=== PATIENT | female | born 1945 | race Caucasian/White ===

== ENCOUNTER → 2023-03-27 12:19 | Outpatient (REF) | payer MEDICARE, OTHER, SELFPAY ==
[2023-03-27 13:24] LABS: Glycohemoglobin (HgbA1c) 8.3 % (4.0-5.6)
[2023-03-27 14:19] LABS: Free T4 1.08 ng/dl (0.78-2.19)
[2023-03-27 14:33] LABS: TSH 4.55 uIU/ml (0.47-4.68)
[2023-03-27 14:37] LABS: Ferritin 94.9 ng/ml (11.1-264.0)
[2023-03-27 15:00] LABS: ALT (SGPT) 37 U/L (0-35); AST (SGOT) 42 U/L (14-36); Albumin 4.5 g/dl (3.5-5.0); Alkaline Phosphatase 116 U/L (38-126); Blood Urea Nitrogen 20 mg/dl (7-17); Calcium 9.7 mg/dl (8.4-10.2); Carbon Dioxide 24 mmol/L (22-30); Chloride 106 mmol/L (98-107); Glucose 226 mg/dl (70-99); HDL Cholesterol 47 mg/dl; Iron 128 ug/dl (37-170); LDL Cholesterol, Calculated 70 mg/dl; Potassium 4.4 mmol/L (3.5-5.1); Sodium 138 mmol/L (135-145); Total Bilirubin 0.8 mg/dl (0.2-1.3); Total Cholesterol 147 mg/dl (50-199); Total Protein 7.7 g/dl (6.3-8.2); Triglyceride 151 mg/dl (10-149); Very Low Density Lipoprotein 30 mg/dl (0-30); eGFR > 60.00
[2023-03-27 15:09] LABS: Percent Saturation 38 % (20-50); Total Iron Binding Capacity 333 ug/dl (265-497)
[2023-03-27 19:28] LABS: Urine Albumin Trace (Neg - Trace); Urine Bilirubin Negative (Negative); Urine Character Very Cloudy (Clear); Urine Color Yellow; Urine Glucose 2+ (Negative); Urine Ketone Negative (Negative); Urine Leukocyte Trace (Negative); Urine Nitrite Negative (Negative); Urine Occult Blood Negative (Negative); Urine Urobilinogen Negative (Neg - 1+)
[2023-03-27 19:42] LABS: Urine Amorphous Seen; Urine Squamous Cell 0-2 /LPF (Few)
[2023-03-27 19:43] LABS: Urine Red Blood Cell None Seen /HPF (0-2); Urine White Cell 0-2 /HPF (0-5)
[2023-03-27 23:33] LABS: IgA 387 mg/dl (70-400)
[2023-03-28 20:08] LABS: Hepatitis B Surface Antigen Negative (Negative)
[2023-03-28 20:26] LABS: Hepatitis B Surface Antibody Negative; Hepatitis C Antibody Negative (Negative)
[2023-03-28 20:36] LABS: Hepatitis A Antibody, Total Positive (Negative)
[2023-03-30 03:04] LABS: F-Actin Antibody IgG 8 Units (0-19); Mitochondrial M2 Ab, IgG 3.5 Units (0.0-24.9)
[2023-03-30 05:44] LABS: Ceruloplasmin 28 mg/dL (16-45)
[2023-03-30 06:39] LABS: Endomysial IgA Antibody Titer <1:10 (<1:10)
[2023-03-31 18:53] LABS: Alpha-1-Antitrypsin 179 mg/dL (90-200); Alpha-1-Antitrypsin Phenotype M2M2
[2023-04-03 13:16] LABS: tTG IgG Antibody 13.7 EU/ml (0-19)
== END ==
LOC: REG 12:19
PROVIDERS: ATTENDING PHYSICIAN Internal Medicine Gastroenterology; FAMILY PHYSICIAN Nurse Practitioner Family; OTHER PHYSICIAN Family Medicine
DX: E11.9 Type 2 diabetes mellitus without complications (principal); E03.9 Hypothyroidism, unspecified; K75.81 Nonalcoholic steatohepatitis (NASH); R82.90 Unspecified abnormal findings in urine
CPT/HCPCS: 36415; 80053; 80061; 81003; 81015; 82103; 82104; 82390; 82728; 82784; 83036; 83516; 83540; 83550; 84439; 84443; 86015; 86231; 86256; 86381; 86706; 86708; 86803; 87086; 87340

== ENCOUNTER → 2023-04-10 11:40 | Outpatient (REF) | payer MEDICARE, OTHER, SELFPAY ==
[2023-04-16 09:31] LABS: Hemochromatosis Specimen Whole Blood
== END ==
LOC: REG 11:40
PROVIDERS: ATTENDING PHYSICIAN Internal Medicine Gastroenterology; FAMILY PHYSICIAN Family Medicine
DX: E83.19 Other disorders of iron metabolism (principal)
CPT/HCPCS: 36415; 81256

== ENCOUNTER → 2023-04-19 06:29 | Day surgery (SDC) | payer MEDICARE, OTHER, SELFPAY ==
[2023-04-19 08:35] LABS: Glucose - Point of Care 171 mg/dl (70-99)
== END ==
LOC: GI 06:29
PROVIDERS: ATTENDING PHYSICIAN Internal Medicine Gastroenterology
DX: Z12.11 Encounter for screening for malignant neoplasm of colon (principal); Z86.010 Personal history of colon polyps; K57.30 Diverticulosis of large intestine without perforation or abscess without bleeding; K64.8 Other hemorrhoids; K63.5 Polyp of colon; D12.3 Benign neoplasm of transverse colon
CPT/HCPCS: 45385; 45380; 88305; 82962

== ENCOUNTER → 2023-06-28 12:50 | Outpatient (REF) | payer MEDICARE, OTHER, SELFPAY ==
[2023-06-28 14:26] LABS: ALT (SGPT) 49 U/L (0-35); AST (SGOT) 45 U/L (14-36); Albumin 4.5 g/dl (3.5-5.0); Alkaline Phosphatase 98 U/L (38-126); Blood Urea Nitrogen 15 mg/dl (7-17); Calcium 9.4 mg/dl (8.4-10.2); Carbon Dioxide 25 mmol/L (22-30); Chloride 104 mmol/L (98-107); Glucose 179 mg/dl (70-99); Sodium 139 mmol/L (135-145); Total Bilirubin 0.8 mg/dl (0.2-1.3); Total Protein 7.7 g/dl (6.3-8.2); eGFR > 60.00
[2023-06-28 14:40] LABS: Free T4 1.19 ng/dl (0.78-2.19)
[2023-06-28 14:54] LABS: TSH 0.18 uIU/ml (0.47-4.68)
[2023-06-29 09:50] LABS: Glycohemoglobin (HgbA1c) 9.4 % (4.0-5.6)
== END ==
LOC: REG 12:50
PROVIDERS: ATTENDING PHYSICIAN Internal Medicine Endocrinology, Diabetes & Metabolism; FAMILY PHYSICIAN Family Medicine
DX: E11.9 Type 2 diabetes mellitus without complications (principal)
CPT/HCPCS: 36415; 80053; 83036; 84439; 84443

== ENCOUNTER → 2023-07-01 10:42 | Outpatient (REF) | payer MEDICARE, OTHER, SELFPAY ==
[2023-07-01 13:10] LABS: Microalbumin, Random Urine 2.2 mg/dl (0.6-1.7)
[2023-07-01 13:15] LABS: Microalbumin/creatinine Ratio 17.1 mg/g
== END ==
LOC: REG 10:42
PROVIDERS: ATTENDING PHYSICIAN Internal Medicine Endocrinology, Diabetes & Metabolism; FAMILY PHYSICIAN Family Medicine
DX: E11.9 Type 2 diabetes mellitus without complications (principal)
CPT/HCPCS: 82043; 82570

== ENCOUNTER → 2023-07-26 11:25 | Outpatient (REF) | payer MEDICARE, OTHER, SELFPAY ==
[2023-07-26 12:20] LABS: INR 1.16; PT 14.6 Sec (11.4-14.6)
[2023-07-26 13:04] LABS: AFP Male/Tumor Marker 2.77 ng/ml
== END ==
LOC: REG 11:25
PROVIDERS: ATTENDING PHYSICIAN Internal Medicine Gastroenterology; FAMILY PHYSICIAN Family Medicine
DX: K74.69 Other cirrhosis of liver (principal)
CPT/HCPCS: 36415; 82105; 85610

== ENCOUNTER → 2023-08-23 06:35 | Day surgery (SDC) | payer MEDICARE, OTHER, SELFPAY ==
[2023-08-23 08:00] LABS: Glucose - Point of Care 180 mg/dl (70-99)
== END ==
LOC: GI 06:35
PROVIDERS: ATTENDING PHYSICIAN Internal Medicine Gastroenterology; FAMILY PHYSICIAN Family Medicine
DX: K29.50 Unspecified chronic gastritis without bleeding (principal); K44.9 Diaphragmatic hernia without obstruction or gangrene; K31.89 Other diseases of stomach and duodenum; R10.10 Upper abdominal pain, unspecified
CPT/HCPCS: 43239; 88305; 82962; 88342

== ENCOUNTER → 2023-10-21 15:27 | Outpatient (REF) | payer MEDICARE, OTHER, SELFPAY | LOC: RAD 15:27 | PROVIDERS: ATTENDING PHYSICIAN Internal Medicine Critical Care Medicine; FAMILY PHYSICIAN Family Medicine | DX: J84.9 Interstitial pulmonary disease, unspecified (principal) | CPT/HCPCS: 71250 ==

== ENCOUNTER → 2023-10-31 09:51 | Outpatient (REF) | payer MEDICARE, OTHER, SELFPAY ==
[2023-10-31 11:09] LABS: ALT (SGPT) 47 U/L (0-35); AST (SGOT) 43 U/L (14-36); Albumin 4.2 g/dl (3.5-5.0); Alkaline Phosphatase 90 U/L (38-126); Blood Urea Nitrogen 19 mg/dl (7-17); Calcium 9.5 mg/dl (8.4-10.2); Carbon Dioxide 22 mmol/L (22-30); Chloride 103 mmol/L (98-107); Direct Bilirubin 0.2 mg/dl (0.0-0.4); Glucose 277 mg/dl (70-99); Potassium 4.3 mmol/L (3.5-5.1); Sodium 140 mmol/L (135-145); Total Bilirubin 1.1 mg/dl (0.2-1.3); eGFR > 60.00
[2023-10-31 11:13] LABS: Urine Protein 5 mg/dl
[2023-10-31 11:26] LABS: Free T4 1.15 ng/dl (0.78-2.19)
[2023-10-31 12:59] LABS: Glycohemoglobin (HgbA1c) 11.2 % (4.0-5.6)
== END ==
LOC: REG 09:51
PROVIDERS: ATTENDING PHYSICIAN Internal Medicine Gastroenterology; FAMILY PHYSICIAN Family Medicine; OTHER PHYSICIAN Internal Medicine Critical Care Medicine; REFERRING PHYSICIAN Internal Medicine Endocrinology, Diabetes & Metabolism
DX: E11.9 Type 2 diabetes mellitus without complications (principal); K75.81 Nonalcoholic steatohepatitis (NASH)
CPT/HCPCS: 36415; 80053; 82248; 82570; 83036; 84156; 84439; 84443

== ENCOUNTER → 2023-11-08 09:16 | Outpatient (REF) | payer MEDICARE, OTHER, SELFPAY | LOC: RAD 09:16 | PROVIDERS: ATTENDING PHYSICIAN Internal Medicine Gastroenterology; FAMILY PHYSICIAN Family Medicine | DX: K75.81 Nonalcoholic steatohepatitis (NASH) (principal) | CPT/HCPCS: 76700 ==

== ENCOUNTER → 2024-02-17 13:56 | Outpatient (REF) | payer MEDICARE, OTHER, SELFPAY | LOC: WDC 13:56 | PROVIDERS: ATTENDING PHYSICIAN Obstetrics & Gynecology | DX: Z12.31 Encounter for screening mammogram for malignant neoplasm of breast (principal) | CPT/HCPCS: 77063; 77067 ==

== ENCOUNTER → 2024-02-17 14:33 | Outpatient (REF) | payer MEDICARE, OTHER, SELFPAY | LOC: RAD 14:33 | PROVIDERS: ATTENDING PHYSICIAN Obstetrics & Gynecology; FAMILY PHYSICIAN Family Medicine | DX: Z78.0 Asymptomatic menopausal state (principal) | CPT/HCPCS: 77080 ==

== ENCOUNTER → 2024-02-28 11:03 | Outpatient (REF) | payer MEDICARE, OTHER, SELFPAY ==
[2024-02-28 12:16] LABS: Albumin 4.4 g/dl (3.5-5.0)
[2024-02-28 12:26] LABS: ALT (SGPT) 38 U/L (0-35); AST (SGOT) 36 U/L (14-36); Alkaline Phosphatase 94 U/L (38-126); Blood Urea Nitrogen 24 mg/dl (7-17); Calcium 9.4 mg/dl (8.4-10.2); Carbon Dioxide 24 mmol/L (22-30); Chloride 105 mmol/L (98-107); Glucose 229 mg/dl (70-99); Potassium 4.7 mmol/L (3.5-5.1); Sodium 139 mmol/L (135-145); Total Bilirubin 0.9 mg/dl (0.2-1.3); Total Protein 7.3 g/dl (6.3-8.2); eGFR > 60.00
[2024-02-28 12:36] LABS: Free T4 1.09 ng/dl (0.78-2.19)
[2024-02-28 12:49] LABS: TSH 5.54 uIU/ml (0.47-4.68); TSH Reflex To Free T4 5.54 uIU/ml (0.47-4.68)
[2024-02-28 14:31] LABS: Glycohemoglobin (HgbA1c) 8.6 % (4.0-5.6)
== END ==
LOC: REG 11:03
PROVIDERS: ATTENDING PHYSICIAN Internal Medicine Endocrinology, Diabetes & Metabolism; FAMILY PHYSICIAN Family Medicine; REFERRING PHYSICIAN Internal Medicine Gastroenterology
DX: E11.9 Type 2 diabetes mellitus without complications (principal)
CPT/HCPCS: 36415; 80053; 82248; 83036; 84439; 84443

== ENCOUNTER 2024-04-24 19:33 | Emergency (ER) | payer MEDICARE, OTHER, SELFPAY ==
[2024-04-24 19:47] VITALS: BP 175/70
[2024-04-24 20:15] LABS: % Basophils 0.5 % (0-2); % Eosinophils 1.4 % (0-6); % Immature Granulocytes 0.4 % (0-0.5); % Lymphocytes 18.9 % (20.5-51.1); % Monocytes 6.9 % (1.7-9.3); % Neutrophils 71.9 % (42.2-75.2); Absolute Eosinophils 0.1 10^3/uL (0-0.7); Absolute Lymphocytes 1.5 10^3/uL (1.2-3.4); Absolute Monocytes 0.6 10^3/uL (0.1-0.6); Absolute Neutrophils 5.7 10^3/uL (1.4-6.5); Hematocrit 45.6 % (37.0-47.0); Hemoglobin 15.5 g/dL (12.0-16.0); Mean Corpuscular Hgb 29.6 pg (27.0-31.0); Mean Platelet Volume 12.8 fL (7.4-10.4); Nucleated Red Blood Cells % 0 %; Platelet Count 114 10^3/uL (130-400); Red Blood Cell Count 5.24 10^6/uL (4.20-5.40); Red Cell Dist. Width 14.5 % (11.5-14.5); White Blood Cell Count 7.9 10^3/uL (4.8-10.8)
[2024-04-24 20:17] LABS: Urine Albumin 2+ (Neg - Trace); Urine Bilirubin Negative (Negative); Urine Character Clear (Clear); Urine Color Yellow; Urine Glucose 3+ (Negative); Urine Ketone Negative (Negative); Urine Leukocyte Negative (Negative); Urine Nitrite Negative (Negative); Urine Occult Blood 4+ (Negative); Urine Urobilinogen 1+ (Neg - 1+)
[2024-04-24 20:27] LABS: ALT (SGPT) 37 U/L (0-35); AST (SGOT) 41 U/L (14-36); Albumin 4.4 g/dl (3.5-5.0); Alkaline Phosphatase 67 U/L (38-126); Blood Urea Nitrogen 21 mg/dl (7-17); Carbon Dioxide 23 mmol/L (22-30); Chloride 106 mmol/L (98-107); Glucose 122 mg/dl (70-99); Potassium 4.5 mmol/L (3.5-5.1); Sodium 137 mmol/L (135-145); Total Bilirubin 1.1 mg/dl (0.2-1.3); Total Protein 7.4 g/dl (6.3-8.2); eGFR 51.75
[2024-04-24 20:29] LABS: Urine Red Blood Cell >100 /HPF (0-2)
[2024-04-24 20:31] LABS: Urine Bacteria Few (Negative); Urine White Cell 0-2 /HPF (0-5)
[2024-04-24 22:27] VITALS: BP 140/65
--- NOTE | 2024-04-24 22:41 | ED.GENMED ---
History of Present Illness
General
Chief Complaint: Flank Pain
Source: patient and spouse
Exam Limitations: none
Time Seen by Provider: 04/24/24 22:33
Nursing documentation reviewed up to this point in time: agreed with
History of Present Illness
History of Present Illness:
78-year-old female presents emergency department due to right-sided flank pain and vomiting since yesterday. She has never had pain like this before. It does not radiate.
Past History
Past History
ED Past Medical History: Hypercholesterolemia, IDDM, Hypothyroidism and Other (Migraines, pulmonary fibrosis)
ED Past Surgical History: Cholecystectomy and Tonsilectomy
Social History
Tobacco: Non-smoker
Personal:
Employment: Employed
Review of Systems
Review of Systems
Allergies reviewed?: Yes
All Other Systems: Not applicable
Constitutional: Reports no symptoms
EENT: Reports no symptoms
Respiratory: Reports no symptoms
Cardiac: Reports no symptoms
ABD/GI: Reports vomiting
: Reports flank pain
Musculoskeletal: Reports no symptoms
Skin: Reports no symptoms
Neurological: Reports no symptoms
Endocrine: Reports no symptoms
Hematologic/Lymphatic: Reports no symptoms
Psychiatric: Reports no symptoms
Phy Exam
Physical Exam
Physical Exam:
Physical Exam
General: no apparent distress, not acutely ill
Neck: supple. no meningeal signs. normal posterior pharynx
Heart: s1/s2 regular rate and rhythm, no murmur. equal radial
pulses.
HEENT: Pupils equal round reactive to light, EOMI
Lungs: no acute respiratory distress. clear bilaterally
Abdomen: normal bowel sounds. not tender. no CVAT
Neuro: alert and oriented. no focal neurological deficits cranial nerves II through XII intact
Skin: no rash
Psychiatric: well kept. interactive and cooperative
Extremities: no edema. no calf tenderness. negative homans. good distal pulses
Course
Orders/Labs/Results
Orders:
Orders
04/24/24 20:01
Complete Blood Count/With Diff Urgent
Comprehensive Metabolic Panel Urgent
04/24/24 20:07
Urinalysis Reflex To Culture Urgent
Date Specimen was Collected: 04/24/24
Time Specimen was Collected: 19:50
Urine Microscopic Reflex Cult Urgent
04/24/24 22:45
CT Abd/pel Without Iv Or Oral Urgent
Comment:
Reason For Exam: right flank pain, hematuria
04/24/24 23:44
0.9% Sodium Chloride 1000 ml [Nss] 1,000 ml IV BOLUS
Ketorolac [Toradol] 15 mg IV NOW STA
Abnormal Lab Results
04/24/24 04/24/24
20:01 20:07
Plt Count 114 L 10^3/uL
(130-400)
MPV 12.8 H fL
(7.4-10.4)
Lymphocytes % 18.9 L %
(20.5-51.1)
BUN 21 H mg/dl
(7-17)
Creatinine 1.1 H mg/dL
(0.6-1.0)
Glucose 122 H mg/dl
(70-99)
AST 41 H U/L
(14-36)
ALT 37 H U/L
(0-35)
Ur Occult Blood Reflex 4+ A
(Negative)
Urine RBC >100 A /HPF
(0-2)
Urine Bacteria (Reflex) Few A
(Negative)
Urine Glucose 3+ A
(Negative)
Urine Albumin (Reflex) 2+ A
(Neg - Trace)
04/24/24 20:01
04/24/24 20:01
Vital Signs
Initial and Last Documented VS:
Initial Vital Signs
Temp Pulse Resp BP Pulse Ox
98.9 F 78 18 175/70 98
04/24/24 19:47 04/24/24 19:47 04/24/24 19:47 04/24/24 19:47 04/24/24 19:47
Last Documented Vital Signs
Temp Pulse Resp BP Pulse Ox
98.9 F 64 18 147/63 97
04/24/24 19:47 04/25/24 00:08 04/24/24 22:27 04/24/24 23:00 04/25/24 00:08
MDM/Problems Addressed
Differential Diagnosis Includes:
UTI, kidney stone
MDM/Problems Addressed:
78-year-old female with right ureteral calculus. No signs UTI. Stable for discharge. Follow-up with urology. Discussed other results to include pulmonary fibrosis and diverticulosis, which patient was aware of.
Chronic conditions affecting care: Other (Diverticulosis)
*Radiology
Radiology exam reviewed: radiology read reviewed (CT abdomen pelvis shows right 3 mm ureteral calculus)
*Pulse Oximetry
Patient hypoxic: no
*Critical Care Note
Total Time (30-74mins, 75-104mins- exclusive of procedures): Not Applicable
Patient Management
Social determinants of health affecting care: Living situation and Strong social support
Escalation/DeEscalation of care consider admission/obs:
Admit not indicated
ED Attending Note
-
Portions of this chart may have been created with voice recognition software.� Occasional wrong word or��sound alike� substitutions may have occurred due to the inherent limitations of voice recognition software.
Discharge Plan
Departure
Patient Disposition: Home (Routine Discharge)
Date of Disposition: 04/25/24
Time of Disposition: 00:35
Patient with high blood pressure during this ER visit?: Yes
Condition: Good
Discharge Problem:
Calculus of distal right ureter
Instructions: Kidney Stones (DC), How to Strain Your Urine, BLOOD PRESSURE
Prescriptions:
No Action
biotin 5,000 MCG tablet,disintegrating
5,000 mcg PO HS
levothyroxine 50 MCG tablet
50 mcg PO DAILY
glimepiride 4 MG tablet
4 mg PO BID
metoprolol succinate 12.5 MG tablet extended release 24 hr
12.5 mg PO QPM
coenzyme Q10 [CoQ-10] 100 mg Capsule
100 mg PO DAILY
rosuvastatin 5 mg Tablet
5 mg PO HS
escitalopram oxalate [Lexapro] 5 mg Tablet
5 mg PO QPM
Theracran 650 mg Capsule
1,300 mg PO DAILY
aspirin 81 mg Capsule
81 mg PO HS
Januvia 25 mg Tablet
25 mg PO DAILY
insulin glargine [Basaglar KwikPen U-100 Insulin] 100 unit/mL (3 mL) Insulin Pen
20 unit SC HS
cefdinir 300 mg capsule
300 mg PO Q12H 5 Days Qty: 10 0RF
Referrals:
Horacio Perry DO [Family Provider] -
Mikhail Marc MD [Active] - Call in 1-3 days for appt
Interventions
Interventions:
*Risk Screen - Suicide Last Done: 04/24/24 22:23
*General Assessment Last Done: 04/24/24 22:24
*Neglect/Abuse Screening Last Done: 04/24/24 22:23
*ED- Fall Risk Assessment Last Done: 04/24/24 22:23
*ED COVID-19 Vaccine History Last Done: 04/24/24 22:23
FB-Xmvdby-Rqxhnzpajj Assessment Last Done: 04/24/24 22:25
ED-Female Genitourinary Assessment Last Done: 04/24/24 22:25
Discharge Date and Time
Print Language: [place]
[2024-04-24 23:00] VITALS: BP 147/63
[2024-04-24] MEDS: NSS 1000 IV (23:59)
[2024-04-24] MEDS: TORADOL 15 MG IV (23:59)
[2024-04-25 00:48] VITALS: BP 130/62
== END 2024-04-25 00:49 | disposition home or self-care (01) ==
LOC: EMR 19:33
PROVIDERS: EMERGENCY PHYSICIAN Emergency Medicine; FAMILY PHYSICIAN Family Medicine
DX: R10.9 Unspecified abdominal pain (principal); E78.00 Pure hypercholesterolemia, unspecified; E11.9 Type 2 diabetes mellitus without complications; E03.9 Hypothyroidism, unspecified; J84.10 Pulmonary fibrosis, unspecified; Z90.49 Acquired absence of other specified parts of digestive tract
CPT/HCPCS: 99284; 96374; 74176; 80053; 81003; 81015; 85025

== ENCOUNTER → 2024-04-30 12:02 | Outpatient (REF) | payer MEDICARE, OTHER, SELFPAY | LOC: CLAB 12:02 | PROVIDERS: ATTENDING PHYSICIAN Specialist | DX: N20.0 Calculus of kidney (principal) | CPT/HCPCS: 82365 ==

== ENCOUNTER → 2024-06-08 10:02 | Outpatient (REF) | payer MEDICARE, OTHER, SELFPAY ==
[2024-06-08 12:29] LABS: ALT (SGPT) 23 U/L (0-35); AST (SGOT) 28 U/L (14-36); Alkaline Phosphatase 62 U/L (38-126); Blood Urea Nitrogen 18 mg/dl (7-17); Calcium 9.5 mg/dl (8.4-10.2); Carbon Dioxide 25 mmol/L (22-30); Chloride 108 mmol/L (98-107); Glucose 125 mg/dl (70-99); HDL Cholesterol 55 mg/dl; LDL Cholesterol, Calculated 68 mg/dl; Potassium 4.4 mmol/L (3.5-5.1); Sodium 141 mmol/L (135-145); Total Bilirubin 0.8 mg/dl (0.2-1.3); Total Cholesterol 157 mg/dl (50-199); Total Protein 6.9 g/dl (6.3-8.2); Triglyceride 173 mg/dl (10-149); Very Low Density Lipoprotein 34 mg/dl (0-30); eGFR > 60.00
[2024-06-08 12:35] LABS: Free T4 1.16 ng/dl (0.78-2.19)
[2024-06-08 12:49] LABS: TSH 3.65 uIU/ml (0.47-4.68)
[2024-06-08 13:40] LABS: Microalbumin, Random Urine 1.8 mg/dl (0.6-1.7)
== END ==
LOC: REG 10:02
PROVIDERS: ATTENDING PHYSICIAN Internal Medicine Endocrinology, Diabetes & Metabolism; FAMILY PHYSICIAN Family Medicine
DX: E11.9 Type 2 diabetes mellitus without complications (principal)
CPT/HCPCS: 36415; 80053; 80061; 82043; 82570; 83036; 84439; 84443

== ENCOUNTER → 2024-06-11 12:59 | Outpatient (REF) | payer MEDICARE, OTHER, SELFPAY | LOC: HWEVLT 12:59 | PROVIDERS: ATTENDING PHYSICIAN Radiology Diagnostic Radiology | DX: I83.891 Varicose veins of right lower extremity with other complications (principal) | CPT/HCPCS: 93971 ==

== ENCOUNTER → 2024-10-27 09:24 | Outpatient (REF) | payer MEDICARE, OTHER, SELFPAY | LOC: HWEVLT 09:24 | PROVIDERS: ATTENDING PHYSICIAN Radiology Vascular & Interventional Radiology | DX: I83.891 Varicose veins of right lower extremity with other complications (principal) | CPT/HCPCS: 36478; C1769 ==

== ENCOUNTER → 2024-11-05 11:18 | Outpatient (REF) | payer MEDICARE, OTHER, SELFPAY | LOC: RAD 11:18 | PROVIDERS: ATTENDING PHYSICIAN Internal Medicine Critical Care Medicine; FAMILY PHYSICIAN Family Medicine | DX: J84.10 Pulmonary fibrosis, unspecified (principal); R91.1 Solitary pulmonary nodule | CPT/HCPCS: 71250 ==

== ENCOUNTER → 2024-11-10 11:13 | Outpatient (REF) | payer MEDICARE, OTHER, SELFPAY | LOC: HWEVLT 11:13 | PROVIDERS: ATTENDING PHYSICIAN Radiology Vascular & Interventional Radiology | DX: I83.891 Varicose veins of right lower extremity with other complications (principal) | CPT/HCPCS: 93971 ==

== ENCOUNTER → 2024-11-17 10:33 | Outpatient (REF) | payer MEDICARE, OTHER, SELFPAY ==
[2024-11-17 11:53] LABS: INR 1.13; PT 14.9 Sec (11.4-14.6)
[2024-11-17 11:54] LABS: Hematocrit 40.5 % (37.0-47.0); Hemoglobin 13.3 g/dL (12.0-16.0); Mean Corp Hgb Conc. 32.8 g/dL (33.0-37.0); Mean Corpuscular Volume 88.2 fL (81.0-99.0); Nucleated Red Blood Cells % 0 %; Platelet Count 98 10^3/uL (130-400); Red Cell Dist. Width 14.5 % (11.5-14.5)
[2024-11-17 12:17] LABS: ALT (SGPT) 37 U/L (0-35); AST (SGOT) 36 U/L (14-36); Albumin 4.2 g/dl (3.5-5.0); Alkaline Phosphatase 64 U/L (38-126); Blood Urea Nitrogen 18 mg/dl (7-17); Calcium 9.2 mg/dl (8.4-10.2); Carbon Dioxide 26 mmol/L (22-30); Chloride 106 mmol/L (98-107); Glucose 141 mg/dl (70-99); HDL Cholesterol 44 mg/dl; LDL Cholesterol, Calculated 48 mg/dl; Potassium 4.8 mmol/L (3.5-5.1); Sodium 139 mmol/L (135-145); Total Protein 7.1 g/dl (6.3-8.2); Very Low Density Lipoprotein 36 mg/dl (0-30); eGFR > 60.00
[2024-11-17 12:47] LABS: TSH 2.58 uIU/ml (0.47-4.68)
[2024-11-17 13:02] LABS: AFP Male/Tumor Marker 3.64 ng/ml
[2024-11-17 13:23] LABS: Microalb - Urine Creatinine 173.800 mg/dl
[2024-11-17 13:28] LABS: Microalbumin, Random Urine 2.7 mg/dl (0.6-1.7)
[2024-11-17 14:34] LABS: Glycohemoglobin (HgbA1c) 7.3 % (4.0-5.6)
== END ==
LOC: REG 10:33
PROVIDERS: ATTENDING PHYSICIAN Internal Medicine Endocrinology, Diabetes & Metabolism; FAMILY PHYSICIAN Family Medicine; REFERRING PHYSICIAN Internal Medicine Gastroenterology
DX: K74.69 Other cirrhosis of liver (principal); E11.9 Type 2 diabetes mellitus without complications
CPT/HCPCS: 36415; 80053; 80061; 82043; 82105; 82570; 83036; 84439; 84443; 85025; 85610

== ENCOUNTER → 2024-12-21 10:59 | Outpatient (REF) | payer MEDICARE, OTHER, SELFPAY | LOC: PAVMRI 10:59 | PROVIDERS: ATTENDING PHYSICIAN Internal Medicine Gastroenterology; FAMILY PHYSICIAN Family Medicine | DX: K74.69 Other cirrhosis of liver (principal) | CPT/HCPCS: 74183; A9581 ==